=== PATIENT | female | born 1935 | race Caucasian/White ===

== ENCOUNTER 2018-09-27 06:24 | Inpatient (IN) | payer OTHER, MEDICAID ==
[~2018-09-27] VITALS: Ht 165.1 cm; Wt 72.8 kg
[~2018-09-27 06:24] MED LIST: ASPIRIN EC81 M1; B12INJ; BACTRIM DS TAB1 EACH PO; CLONAZEPAM 0.50.5 M1 PO; COLACE100 MG PO; CRESTOR10 MG; FISH OIL 1,0001 EAC8 PO; FUROSEMIDE 20 M20 M1 PO; HYDROCODON-ACE1 EAC7; HYDROCODON-ACE1 EAC7 PO; HYDROCODONE-AP1 EAC6 PO; KLOR-CON 10 ER10 MEQ PO; LABETALOL 100100 MG PO; LEVOTHYROXINE0.05 MG PO; NORCO 5-325 TA1 EAC1 PO; NORCO 5-325 TA1 EACH PO; OXYCONTIN20 M1 PO; PERCOCET 10-651 EACH PO; UNABLE TO REMEMBER; VALIUM2 MG PO; VITAMIN D400 UNI1 PO; ZETIA10 MG; ZOFRAN ODT4 MG PO; ZOLOFT; [UNRECOGNIZED DRUG - REMARK]
[2018-09-27 06:26] VITALS: BP 135/57
[2018-09-27 07:16] LABS: ABSOLUTE LYMPHOCYTES 1.2 thou/uL (0.8-5.3); ABSOLUTE MONOCYTES 0.6 thou/uL (0.0-1.2); ABSOLUTE NEUTROPHILS 5.9 thou/uL (1.6-8.1); BASOPHILS 0.3 %; EOSINOPHILS 0.6 %; HEMATOCRIT 36.7 % (37.0-47.0); HEMOGLOBIN 12.1 gm/dL (12.0-15.0); LYMPHOCYTES 15.9 %; MCH 30.2 pg (26.0-34.0); MCHC 32.9 g/dL (28.0-37.0); MCV 91.5 fL (80.0-100.0); MONOCYTES 7.2 %; MPV 7.6 fl. (7.2-11.1); NUCLEATED RBCS 0 /100WBC; PLATELET COUNT* 158 thou/uL (150-400); RBC 4.01 mil/uL (4.20-5.00); RDW-CV 14.7 % (10.5-14.5); WBC 7.7 thou/uL (4.0-11.0)
[2018-09-27 07:37] LABS: ANION GAP 11 mmol/L (7-16); BUN 11 mg/dL (7-18); CALCIUM 8.6 mg/dL (8.5-10.1); CHLORIDE 109 mmol/L (98-107); CO2 24 mmol/L (21-32); CREATININE 0.9 mg/dL (0.6-1.3); GLUCOSE 109 mg/dL (70-99); POTASSIUM 4.1 mmol/L (3.5-5.1); SODIUM 144 mmol/L (136-145)
[2018-09-27 07:42] LABS: ALBUMIN 3.3 g/dL (3.4-5.0); ALKALINE PHOSPHATASE 47 U/L (46-116); SGOT 23 U/L (15-37); SGPT 18 U/L (30-65); TOTAL BILIRUBIN 0.5 mg/dL (<0.1-1.0); TOTAL PROTEIN 6.4 g/dL (6.4-8.2); TROPONIN-I LEVEL <0.06 ng/mL (<0.06)
[2018-09-27 12:45] VITALS: BP 106/48
[2018-09-27 16:00] VITALS: BP 106/52
[2018-09-27 20:00] VITALS: BP 104/47; BP 125/56; BP 98/40
[2018-09-28] VITALS: BP 104/44
[2018-09-28 04:00] VITALS: BP 114/50
[2018-09-28 05:36] LABS: CHOLESTEROL 219 mg/dL (<200); HDL CHOLESTEROL 46 mg/dL (>40); LDL CHOLESTEROL 156 mg/dL (<100); TC:HDL 4.8 Ratio (Not establshd); TRIGLYCERIDE 86 mg/dL (<150); VLDL 17 mg/dL (<40)
[2018-09-28 05:47] LABS: SERUM ASSESSMENT CLEAR
[2018-09-28 08:00] VITALS: BP 119/46
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
[2018-09-28 11:39] VITALS: BP 126/62
[2018-09-28 15:49] VITALS: BP 108/57
[2018-09-28 20:00] VITALS: BP 139/78
[2018-09-29] VITALS: BP 112/46
[2018-09-29 00:04] LABS: URINE BILIRUBIN NEGATIVE (Negative); URINE BLOOD TRACE (Negative); URINE CLARITY CLEAR; URINE COLOR YELLOW; URINE GLUCOSE-RANDOM NEGATIVE (Negative); URINE KETONES NEGATIVE (Negative); URINE LEUKOCYTES-REFLEX NEGATIVE (Negative); URINE NITRITE-REFLEX NEGATIVE (Negative); URINE PROTEIN NEGATIVE (Negative); URINE SPECIFIC GRAVITY <= 1.005 (1.005-1.030); URINE UROBILINOGEN 0.2 E.U./dl (0.2-1.0)
[2018-09-29 03:10] LABS: GLYCOHEMOGLOBIN (HGB A1C) 5.5 % (4.8-5.6)
[2018-09-29 04:00] VITALS: BP 116/49
[2018-09-29 07:42] VITALS: BP 135/56
[2018-09-29] MEDS ORDERED: PREDNISONE 10 M10 MG PO (11:08)
[2018-09-29] MEDS ORDERED: KEFLEX500 M1 PO (11:08)
[2018-09-29] MEDS ORDERED: PERCOCET PO (11:09)
--- NOTE | 2018-09-29 12:18 | EKG ---
[place] [id number] ELECTROCARDIOGRAM REPORT Name: SUSAN ZAMBRANO Room: [address] ADM [place] .R.#: [id number] Admission: 09/27/18 Attend Phys: Staci Klein Discharge: Date of : 37 Report #: [id number] THIS REPORT FOR: //name// [facility] ED Test Date: 2018-09-27 Test Time: 06:30:46 Pat Name: SUSAN ZAMBRANO Department: Room: [facility] Gender: F Event Host: [place] : 1935 Requested By: Aruna Rodriguez Order Number: [id number] MD: Arnulfo Fleming Measurements Intervals [place] Rate: 70 P: 39 ND: 174 QRS: 4 QRSD: 89 T: 26 QT: 371 QTc: 401 Interpretive Statements Sinus rhythm Compared to ECG 06/16/2014 14:16:48 No significant changes Electronically Signed On 09-29-2018 12:18:19 CDT by Arnulfo Fleming [email or web address] <ELECTRONICALLY SIGNED> By: Arnulfo Fleming MD, [facility] 09/29/18 1218 Arnulfo Fleming MD, FAC /EPI
--- NOTE | 2018-09-29 13:33 | 2DMMODE ---
[place] [address] 2 D/M-MODE ECHOCARDIOGRAM Name: SUSAN ZAMBRANO Room: [address] IN [facility]#: [id number] Admission: 09/27/18 Attend Phys: Dwight Greene Discharge: Date of : 37 Date of Service: 09/29/18 1332 Report #: [id number] THIS REPORT FOR: //name// APPROVED REPORT Study performed: 09/29/2018 11:20:27 EXAM: Comprehensive 2D, Doppler, and color-flow Echocardiogram Patient Location: In-Patient Room #: [facility] Status: routine BSA: 1.80 HR: 70 bpm BP: 135/56 mmHg Rhythm: NSR Other Information Study Quality: Good Indications CVA/TIA Echo Enhancing Agent Indication: Rule out Shunt Agent(s) / Amount(s) Used: Agitated Saline 10 cc 2D Dimensions IVSd: 10.55 (7-11mm) LVOT Diam: 19.56 (18-24mm) LVDd: 40.73 mm PWd: 6.47 (7-11mm) Ascending Ao: 28.70 (22-36mm) LVDs: 18.16 (25-40mm) Aortic Root: 29.85 mm Volumes Left Atrial Volume (Systole) LA ESV Index: 32.90 mL/m2 Aortic Valve AoV Peak Ulysses.: 1.84 m/s AO Peak Gr.: 13.53 mmHg LVOT Max P.42 mmHg AO Mean Gr.: 7.93 mmHg LVOT Mean P.49 mmHg LVOT Max V: 1.05 m/s AO V2 VTI: 41.52 cm LVOT Mean V: 0.74 m/s CONRADO (VTI): 1.87 cm2 LVOT V1 VTI: 25.87 cm AI Anderson: 3.71 m/s2 [place] [address] 2 D/M-MODE ECHOCARDIOGRAM Name: SUSAN ZAMBRANO Room: [address] IN [facility]#: [id number] Admission: 09/27/18 Attend Phys: Dwight Greene Discharge: Date of : 37 Date of Service: 09/29/18 1332 Report #: [id number] AI PHT: 263.34 ms Mitral Valve E/A Ratio: 1.07 MV Decel. Time: 163.68 ms MV E Max Ulysses.: 0.99 m/s MV PHT: 47.47 ms MVA (PHT): 4.63 cm2 TDI E/Lateral E': 7.62 E/Medial E': 9.00 Medial E' Ulysses.: 0.11 m/s Lateral E' Ulysses.: 0.13 m/s Pulmonary Valve PV Peak Ulysses.: 0.94 m/s PV Peak Gr.: 3.54 mmHg Tricuspid Valve RAP Estimate: 5.00 mmHg TR Peak Gr.: 22.29 mmHg RVSP: 27.00 mmHg PA Pressure: 27.00 mmHg Left Ventricle The left ventricle is normal size. There is normal LV segmental wall motion. There is normal left ventricular wall thickness. Left ventricular systolic function is normal. LVEF is 60-65%. Transmitral Doppler flow pattern suggests impaired LV relaxation. Right Ventricle The right ventricle is normal size. The right ventricular systolic function is normal. Atria Left atrium is mildly dilated. Interatrial septum is intact without evidence of ASD or PFO. Right atrium is mildly dilated. Aortic Valve Mild aortic valve sclerosis. Moderate aortic regurgitation. Mild aortic stenosis. Mitral Valve There is mitral annular calcification. Mild mitral regurgitation. No evidence of mitral valve stenosis. Tricuspid Valve The tricuspid valve is normal in structure[place] [address] 2 D/M-MODE ECHOCARDIOGRAM Name: KATRIN ZAMBRANOH Kate Room: [address] IN [facility]#: [id number] Admission: 09/27/18 Attend Phys: Dwight Greene Discharge: Date of : 37 Date of Service: 09/29/18 1332 Report #: [id number] regurgitation. No pulmonary hypertension. Pulmonic Valve The pulmonary valve is normal in structure. There is no pulmonic valvular regurgitation. Great Vessels The aortic root is normal in size. IVC is normal in size and collapses >50% with inspiration. Pericardium There is no pericardial effusion. <Conclusion> The left ventricle is normal size. There is normal left ventricular wall thickness. Left ventricular systolic function is normal. LVEF is 60-65%. Transmitral Doppler flow pattern suggests impaired LV relaxation. Left atrium is mildly dilated. Right atrium is mildly dilated. Interatrial septum is intact without evidence of ASD or PFO. Mild aortic valve sclerosis. Moderate aortic regurgitation. Mild aortic stenosis. Mild mitral regurgitation. Mild tricuspid regurgitation. No pulmonary hypertension. IVC is normal in size and collapses >50% with inspiration. <ELECTRONICALLY SIGNED> By: Salo Dawson MD, FACC 09/29/181331 31 31 Salo Dawson MD, FACC /INF
[2018-09-29 13:54] VITALS: BP 135/56
== END 2018-09-29 14:19 | disposition home or self-care (01) | DRG 543 ==
LOC: M.ERS 06:24 → M.TBA-ER 10:16 → M.2W 10:16
PROVIDERS: Emergency Medicine; Internal Medicine Cardiovascular Disease; ADMIT Internal Medicine
DX: M80.012A Age-related osteoporosis with current pathological fracture, left shoulder, initial encounter for fracture (principal); E44.1 Mild protein-calorie malnutrition; I10 Essential (primary) hypertension; E78.00 Pure hypercholesterolemia, unspecified; Z96.652 Presence of left artificial knee joint; W18.39XA Other fall on same level, initial encounter; Z87.81 Personal history of (healed) traumatic fracture; Z79.899 Other long term (current) drug therapy; Z87.442 Personal history of urinary calculi; Z86.73 Personal history of transient ischemic attack (TIA), and cerebral infarction without residual deficits; Z87.11 Personal history of peptic ulcer disease; Z88.0 Allergy status to penicillin; Z88.8 Allergy status to other drugs, medicaments and biological substances; Z91.041 Radiographic dye allergy status; Y93.89 Activity, other specified; Y92.89 Other specified places as the place of occurrence of the external cause; Y99.8 Other external cause status

== ENCOUNTER 2019-08-07 10:07 | Emergency (ER) | payer OTHER, MEDICAID ==
[~2019-08-07] VITALS: Ht 165.1 cm; Wt 71.1 kg
[~2019-08-07 10:07] MED LIST changes: +KEFLEX500 M1 PO; +PERCOCET PO; +PREDNISONE 10 M10 MG PO
[2019-08-07 12:35] LABS: URINE BILIRUBIN NEGATIVE (Negative); URINE BLOOD NEGATIVE (Negative); URINE CLARITY CLEAR; URINE COLOR YELLOW; URINE GLUCOSE-RANDOM NEGATIVE (Negative); URINE KETONES NEGATIVE (Negative); URINE LEUKOCYTES-REFLEX TRACE (Negative); URINE NITRITE-REFLEX NEGATIVE (Negative); URINE PROTEIN NEGATIVE (Negative); URINE SPECIFIC GRAVITY >= 1.030 (1.005-1.030); URINE UROBILINOGEN 0.2 E.U./dl (0.2-1.0)
[2019-08-07 12:41] LABS: SQUAMOUS 4-10 Moderate /LPF (0-3)
[2019-08-07 12:42] LABS: URINE RBC None Seen /HPF (0-2)
[2019-08-07] MEDS ORDERED: BACTRIM DS TAB1 EACH PO (12:44)
[2019-08-07] MEDS ORDERED: NORCO 5-325 TA1 EAC1 PO (12:44)
[2019-08-07] MEDS ORDERED: CIPRO500 M1 PO (12:45)
[2019-08-07 12:49] LABS: MUCUS >6 Heavy strn/LPF (None Seen)
[2019-08-07 12:50] LABS: HYALINE CASTS >10 Many /LPF (None Seen)
[2019-08-07 12:51] LABS: FINE GRANULAR CASTS 0-3 Few /LPF (None Seen)
[2019-08-07 12:52] LABS: URINE WBC-REFLEX 6-15 Few /HPF (0-5)
[2019-08-07 12:53] LABS: CALCIUM OXALATE 0-3 Few /LPF (None Seen)
[2019-08-07 13:15] VITALS: BP 113/59
== END 2019-08-07 13:15 | disposition home or self-care (01) ==
LOC: M.ERS 10:07
PROVIDERS: Emergency Medicine Emergency Medical Services
DX: N39.0 Urinary tract infection, site not specified (principal); I10 Essential (primary) hypertension; E78.00 Pure hypercholesterolemia, unspecified; Z91.041 Radiographic dye allergy status; Z88.0 Allergy status to penicillin; Z88.8 Allergy status to other drugs, medicaments and biological substances; Z96.652 Presence of left artificial knee joint

== ENCOUNTER 2019-11-30 08:57 | Inpatient (IN) | payer OTHER, MEDICAID ==
[~2019-11-30] VITALS: Ht 167.6 cm; Wt 59.9 kg
[~2019-11-30 08:57] MED LIST changes: +CIPRO500 M1 PO; +SERTRALINE HCL50 MG PO; -ZOLOFT
[2019-11-30 09:00] VITALS: BP 146/59
[2019-11-30 09:55] LABS: ABSOLUTE EOSINOPHILS 0.1 thou/uL (0.0-0.7); ABSOLUTE LYMPHOCYTES 1.2 thou/uL (0.8-5.3); ABSOLUTE MONOCYTES 0.4 thou/uL (0.0-1.2); ABSOLUTE NEUTROPHILS 3.2 thou/uL (1.6-8.1); BASOPHILS 0.7 %; EOSINOPHILS 2.3 %; HEMATOCRIT 33.5 % (37.0-47.0); HEMOGLOBIN 11.2 gm/dL (12.0-15.0); LYMPHOCYTES 24.1 %; MCH 28.3 pg (26.0-34.0); MCHC 33.4 g/dL (28.0-37.0); MCV 84.7 fL (80.0-100.0); MONOCYTES 8.9 %; MPV 7.8 fl. (7.2-11.1); NUCLEATED RBCS 0 /100WBC; PLATELET COUNT* 217 thou/uL (150-400); RBC 3.96 mil/uL (4.20-5.00)
[2019-11-30 10:01] LABS: CALCIUM 9.7 mg/dL (8.5-10.1); CREATININE 0.9 mg/dL (0.6-1.3)
[2019-11-30 10:11] LABS: ALBUMIN 3.7 g/dL (3.4-5.0); TOTAL BILIRUBIN 0.6 mg/dL (<0.1-1.0); TOTAL PROTEIN 6.8 g/dL (6.4-8.2)
[2019-11-30 11:18] LABS: URINE BILIRUBIN NEGATIVE (Negative); URINE BLOOD NEGATIVE (Negative); URINE CLARITY CLEAR; URINE COLOR YELLOW; URINE GLUCOSE-RANDOM NEGATIVE (Negative); URINE KETONES 1+ (Negative); URINE LEUKOCYTES-REFLEX NEGATIVE (Negative); URINE NITRITE-REFLEX NEGATIVE (Negative); URINE PROTEIN NEGATIVE (Negative); URINE SPECIFIC GRAVITY 1.015 (1.005-1.030); URINE UROBILINOGEN 0.2 E.U./dl (0.2-1.0)
[2019-11-30 13:10] VITALS: BP 108/49
[2019-11-30 16:09] LABS: HEMATOCRIT 30.9 % (37.0-47.0); HEMOGLOBIN 10.5 gm/dL (12.0-15.0); MCH 28.7 pg (26.0-34.0); MCV 84.4 fL (80.0-100.0); MPV 7.9 fl. (7.2-11.1); RBC 3.65 mil/uL (4.20-5.00); RDW-CV 15.9 % (10.5-14.5); WBC 4.7 thou/uL (4.0-11.0)
[2019-11-30 16:19] LABS: APTT 28.7 Seconds (25.0-31.3); INR 1.1; PROTIME 11.2 Seconds (9.20-11.50)
[2019-11-30 16:26] LABS: CALCIUM 8.9 mg/dL (8.5-10.1); CREATININE 0.8 mg/dL (0.6-1.3); POTASSIUM 4.2 mmol/L (3.5-5.1)
[2019-11-30 16:46] VITALS: BP 114/52
--- NOTE | 2019-11-30 17:44 | EKG ---
[place] [address] ELECTROCARDIOGRAM REPORT Name: SUSAN ZAMBRANO Room: [address] ADM [place] .R.#: [id number] Admission: 11/30/19 Attend Phys: Cara Crawford, Discharge: Date of : 37 Date of Service: 11/30/19 0918 Report #: [id number] THIS REPORT FOR: //name// [facility] ED Test Date: 2019-11-30 Test Time: 09:18:48 Pat Name: SUSAN ZAMBRANO Department: Room: [facility] Gender: F Manager Life: CCD : 1935 Requested By: Efrain Kc Order Number: [id number] MD: Salo Dawson Measurements Intervals [place] Rate: 99 P: 48 DE: 180 QRS: 6 QRSD: 80 T: 16 QT: 329 QTc: 423 Interpretive Statements Sinus rhythm Anteroseptal infarct, old, possible Baseline wander in lead(s) I,aVR Compared to ECG 09/27/2018 06:30:46 Myocardial infarct finding now present Electronically Signed On 11-30-2019 17:44:12 CDT by Salo Dawson [email or web address] <ELECTRONICALLY SIGNED> By: Salo Dawson MD, FACC 11/30/19 1744 7 7 Salo Dawson MD, FACC /EPI
[2019-11-30 20:20] VITALS: BP 113/60
[2019-12-01 08:00] VITALS: BP 132/64
[2019-12-01 15:40] VITALS: BP 132/64
[2019-12-01 15:56] VITALS: BP 120/63
[2019-12-01 20:10] VITALS: BP 133/65
[2019-12-02] VITALS (7 sets, daily range): BP systolic 111–178; BP diastolic 47–64
[2019-12-02 04:33] LABS: HEMATOCRIT 36.4 % (37.0-47.0); HEMOGLOBIN 12.2 gm/dL (12.0-15.0); MCH 28.5 pg (26.0-34.0); MCHC 33.5 g/dL (28.0-37.0); MPV 8.2 fl. (7.2-11.1); RBC 4.28 mil/uL (4.20-5.00); RDW-CV 15.9 % (10.5-14.5); WBC 4.6 thou/uL (4.0-11.0)
[2019-12-02 05:00] LABS: PROTIME 10.8 Seconds (9.20-11.50)
[2019-12-02 05:10] LABS: ALBUMIN 3.9 g/dL (3.4-5.0); CALCIUM 10.2 mg/dL (8.5-10.1); CREATININE 0.8 mg/dL (0.6-1.3); POTASSIUM 3.7 mmol/L (3.5-5.1); TOTAL BILIRUBIN 0.6 mg/dL (<0.1-1.0); TOTAL PROTEIN 7.4 g/dL (6.4-8.2)
[2019-12-02 08:49] LABS: CALCIUM 9.5 mg/dL (8.5-10.1); CREATININE 0.8 mg/dL (0.6-1.3); PHOSPHORUS* 5.7 mg/dL (2.5-4.9)
[2019-12-03 07:45] VITALS: BP 113/59
[2019-12-03] MEDS ORDERED: CALCIUM + VITA1 EACH PO (07:54)
[2019-12-03] MEDS ORDERED: VITAMIN B-12500 MCG PO (07:54)
[2019-12-03] MEDS ORDERED: VITAMIN D325 MCG PO (07:54)
[2019-12-03] MEDS ORDERED: TRAMADOL 50 MG50 MG PO (07:54)
[2019-12-03 10:28] LABS: HEMATOCRIT 34.4 % (37.0-47.0); HEMOGLOBIN 11.5 gm/dL (12.0-15.0); MCH 28.5 pg (26.0-34.0); MCHC 33.5 g/dL (28.0-37.0); MCV 85.1 fL (80.0-100.0); MPV 7.7 fl. (7.2-11.1); RBC 4.05 mil/uL (4.20-5.00); RDW-CV 15.5 % (10.5-14.5); WBC 4.6 thou/uL (4.0-11.0)
[2019-12-03 10:38] LABS: ALBUMIN 3.4 g/dL (3.4-5.0); CALCIUM 9.5 mg/dL (8.5-10.1); CREATININE 0.9 mg/dL (0.6-1.3); MAGNESIUM 1.8 mg/dL (1.8-2.4); POTASSIUM 3.3 mmol/L (3.5-5.1); TOTAL BILIRUBIN 0.5 mg/dL (<0.1-1.0); TOTAL PROTEIN 6.6 g/dL (6.4-8.2)
[2019-12-03 16:08] VITALS: BP 114/64
[2019-12-03 20:00] VITALS: BP 125/67
[2019-12-04 07:45] VITALS: BP 109/69
[2019-12-04 16:14] VITALS: BP 114/73
[2019-12-04 19:51] VITALS: BP 126/59
[2019-12-05 07:30] VITALS: BP 100/57
[2019-12-05 17:30] VITALS: BP 97/51
[2019-12-05 20:25] VITALS: BP 114/57
[2019-12-06 08:14] VITALS: BP 116/56
[2019-12-06 16:00] VITALS: BP 132/60
[2019-12-06 21:07] VITALS: BP 109/52
[2019-12-07 03:51] LABS: HEMATOCRIT 33.8 % (37.0-47.0); HEMOGLOBIN 11.6 gm/dL (12.0-15.0); MCH 28.8 pg (26.0-34.0); MCHC 34.3 g/dL (28.0-37.0); MCV 84.1 fL (80.0-100.0); MPV 7.6 fl. (7.2-11.1); RBC 4.02 mil/uL (4.20-5.00); RDW-CV 15.7 % (10.5-14.5); WBC 4.7 thou/uL (4.0-11.0)
[2019-12-07 06:27] LABS: CALCIUM 10.4 mg/dL (8.5-10.1); CREATININE 0.9 mg/dL (0.6-1.3); MAGNESIUM 1.8 mg/dL (1.8-2.4); POTASSIUM 3.5 mmol/L (3.5-5.1)
[2019-12-07 07:47] VITALS: BP 145/64
[2019-12-07] MEDS ORDERED: VOLTAREN GEL 1100 G1 TOP (08:10)
[2019-12-07] MEDS ORDERED: VITAMIN D21250 MCG PO (08:16)
[2019-12-07 15:56] VITALS: BP 147/63
[2019-12-08] VITALS: BP 114/56
[2019-12-08 08:00] VITALS: BP 144/81
== END 2019-12-08 13:33 | DRG 517 ==
LOC: M.ERS 08:57 → M.TBA-ER 11:40 → M.ORTHSURG 11:40
PROVIDERS: Emergency Medicine Emergency Medical Services; Radiology Diagnostic Radiology; ADMIT Internal Medicine; ATTEND Internal Medicine
DX: M80.08XA Age-related osteoporosis with current pathological fracture, vertebra(e), initial encounter for fracture (principal); E78.00 Pure hypercholesterolemia, unspecified; I12.9 Hypertensive chronic kidney disease with stage 1 through stage 4 chronic kidney disease, or unspecified chronic kidney disease; N18.9 Chronic kidney disease, unspecified; Z88.8 Allergy status to other drugs, medicaments and biological substances; D64.89 Other specified anemias; Z96.652 Presence of left artificial knee joint; E78.5 Hyperlipidemia, unspecified; Z20.828 Contact with and (suspected) exposure to other viral communicable diseases; Z79.899 Other long term (current) drug therapy; Z88.0 Allergy status to penicillin; Z91.048 Other nonmedicinal substance allergy status